=== PATIENT | female | born 1960 | race Two or more races ===

== ENCOUNTER 2022-07-11 10:46 | Emergency (ER) | payer OTHER ==
[~2022-07-11] VITALS: Ht 170.2 cm; Wt 75.2 kg
[2022-07-11 12:17] VITALS: BP 130/88
[2022-07-12] MEDS ORDERED: CEPH-510 PO (16:21)
== END 2022-07-12 02:28 | disposition left against medical advice (07) ==
LOC: ER 10:46
DX: M79.642 Pain in left hand (principal); Z53.21 Procedure and treatment not carried out due to patient leaving prior to being seen by health care provider

== ENCOUNTER 2022-07-12 11:21 | Emergency (ER) | payer OTHER ==
[~2022-07-12] VITALS: Ht 170.2 cm; Wt 75.9 kg
[2022-07-12] MEDS ORDERED: CEPH-510 PO (16:21)
[2022-07-12 17:50] VITALS: BP 145/91
== END 2022-07-12 18:03 | disposition home or self-care (01) ==
LOC: ER 11:21
DX: L03.114 Cellulitis of left upper limb (principal)
CPT/HCPCS: 73120